=== PATIENT | male | born 1935 | race Caucasian/White ===

== ENCOUNTER → 2018-08-01 | Outpatient (CLI) | payer MEDICARE | END | disposition home or self-care (01) | LOC: PCVCCLINIC 13:20 | PROVIDERS: ATTEND Internal Medicine | DX: I25.10 Atherosclerotic heart disease of native coronary artery without angina pectoris (principal); I10 Essential (primary) hypertension; E78.5 Hyperlipidemia, unspecified; E11.9 Type 2 diabetes mellitus without complications; I95.1 Orthostatic hypotension; R01.1 Cardiac murmur, unspecified; K21.9 Gastro-esophageal reflux disease without esophagitis; Z79.82 Long term (current) use of aspirin; Z88.8 Allergy status to other drugs, medicaments and biological substances | CPT/HCPCS: 36415; 80061; 93005; G0463 ==

== ENCOUNTER → 2018-09-08 | Outpatient (CLI) | payer MEDICARE ==
--- NOTE | 2018-09-08 14:26 | PCVCIMAG ---
EXAM: BILATERAL CAROTID DUPLEX INDICATION: Carotid Occlusive Disease. FINDINGS: Doppler Measurements (centimeters per second): RIGHT: Peak CCA-54, Peak ECA-316, Diastolic ICA-117, Peak ICA-370, ICA/CCA Ratio-6.8. LEFT: Peak CCA-100, Peak ECA-247, Diastolic ICA-41, Peak ICA-176, ICA/CCA Ratio-1.8. RIGHT CAROTID: Previous stent upper common carotid artery and extending into the internal carotid artery appears to have high-grade 90% restenosis at its distal margin. The common carotid artery shows no significant stenosis. The external carotid artery shows 80% stenosis. LEFT CAROTID: The carotid bulb has moderate plaque. The proximal internal carotid artery shows 60% stenosis. The common carotid artery shows no significant stenosis. The external carotid artery shows 70% stenosis. Antegrade flow in both vertebral arteries. IMPRESSION: 90% restenosis proximal right internal carotid artery at the distal margin of a prior stent. 60% stenosis stenosis of the left internal carotid artery with moderate plaque. Further evaluation with conventional angiography will be arranged with the patient. LOC:OFFICE
--- NOTE | 2018-09-11 11:28 | PCVCIMAG ---
APPROVED REPORT Study performed: 09/08/2018 12:48:35 EXAM: Comprehensive 2D, Doppler, and color-flow Echocardiogram Patient Location: Echo lab Status: routine BSA: 1.90 HR: 55 bpmBP: 144/60 mmHg Rhythm: Bradycardia Other Information Study Quality: Adequate Risk Factors: Cardiac Risk Factors: HTN Indications Diabetes Murmur CAD 2D Dimensions IVSd: 11.30 (7-11mm)LVOT Diam: 21.16 (18-24mm) LVDd: 44.19 mm PWd: 10.68 (7-11mm) LVDs: 29.82 (25-40mm) Left Atrium: 32.75 (27-40mm) Aortic Root: 28.05 mm LV Single Plane 4CH: 60.51 % LV Single Plane 2CH: 66.69 % Biplane EF: 63.2 % Volumes Left Atrial Volume (Systole) Single Plane 4CH: 44.79 mLSingle Plane 2CH: 70.95 mL LA ESV Index: 31.00 mL/m2 Aortic Valve AoV Peak Franco.: 3.22 m/s AO Peak Gr.: 41.49 mmHgLVOT Max P.31 mmHg AO Mean Gr.: 22.91 mmHgLVOT Mean P.57 mmHg AO V2 Mean: 2.29 m/sLVOT Max V: 1.35 m/s AO V2 VTI: 75.29 cmLVOT Mean V: 0.89 m/s MUNIR (VTI): 1.43 [id number] V1 VTI: 30.71 cm MUNIR Vmax: 1.48 cm2 SV (LVOT): 107.94 mL Mitral Valve E/A Ratio: 0.8 MV Decel. Time: 295.25 ms MV E Max Franco.: 0.95 m/s MV A Franco.: 1.15 m/s IVRT: 93.43 ms Pulmonary Valve PV Peak Franco.: 1.26 m/sPV Peak Gr.: 6.36 mmHg Pulmonary Vein P Vein S: 0.33 m/sP Vein A: 0.29 m/s P Vein D: 0.49 m/sP Vein A Dur.: 141.9 msec P Vein S/D Ratio: 0.67 Tricuspid Valve TR Peak Franco.: 2.37 m/s TR Peak Gr.: 22.53 mmHg Left Ventricle The left ventricle is normal size. There is normal LV segmental wall motion. There is normal left ventricular wall thickness. Left ventricular systolic function is normal. The left ventricular ejection fraction is within the normal range. LVEF is 60-65%. The left ventricular diastolic function is normal. Right Ventricle The right ventricle is normal size. The right ventricular systolic function is normal. Atria The left atrium size is normal. The right atrium size is normal. Aortic Valve The aortic valve is moderately sclerotic. No aortic regurgitation is present. There is mild to moderate valvular aortic stenosis. Calculated aortic valve area is 1.5 cm2 with maximum pressure gradient of 41 mmHg and mean pressure gradient of 23 mmHg. Mitral Valve The mitral valve is normal in structure. Mild mitral regurgitation. No evidence of mitral valve stenosis. Tricuspid Valve The tricuspid valve is normal in structure. Mild tricuspid regurgitation with PAP of 30 mmHg. Pulmonic Valve The pulmonary valve is normal in structure. Trace pulmonic regurgitation. Great Vessels The aortic root is normal in size. IVC is normal in size and collapses >50% with inspiration. Pericardium There is no pericardial effusion. There is no pleural effusion. <Conclusion> The left ventricle is normal size. LVEF is 60-65%. The aortic valve is moderately sclerotic. No aortic regurgitation is present. There is mild to moderate valvular aortic stenosis. Calculated aortic valve area is 1.5 cm2 with maximum pressure gradient of 41 mmHg and mean pressure gradient of 23 mmHg. The mitral valve is normal in structure. Mild mitral regurgitation. The tricuspid valve is normal in structure. Mild tricuspid regurgitation with PAP of 30 mmHg. The pulmonary valve is normal in structure. Trace pulmonic regurgitation. There is no pericardial effusion.
== END | disposition home or self-care (01) ==
LOC: PCVCIMAG 12:43
PROVIDERS: ATTEND Internal Medicine
DX: I65.23 Occlusion and stenosis of bilateral carotid arteries (principal); I08.1 Rheumatic disorders of both mitral and tricuspid valves; E11.9 Type 2 diabetes mellitus without complications; R01.1 Cardiac murmur, unspecified; I25.10 Atherosclerotic heart disease of native coronary artery without angina pectoris; Z87.891 Personal history of nicotine dependence
CPT/HCPCS: 93306; 93880

== ENCOUNTER → 2018-09-14 | Outpatient (CLI) | payer MEDICARE | END | disposition home or self-care (01) | LOC: PCVCCLINIC 10:00 | PROVIDERS: ATTEND Nuclear Medicine Nuclear Cardiology | DX: I77.9 Disorder of arteries and arterioles, unspecified (principal); I25.10 Atherosclerotic heart disease of native coronary artery without angina pectoris; I10 Essential (primary) hypertension; E11.9 Type 2 diabetes mellitus without complications; E78.00 Pure hypercholesterolemia, unspecified; K21.9 Gastro-esophageal reflux disease without esophagitis; Z87.891 Personal history of nicotine dependence; Z79.82 Long term (current) use of aspirin | CPT/HCPCS: G0463 ==

== ENCOUNTER → 2019-03-06 | Outpatient (CLI) | payer MEDICARE | END | disposition home or self-care (01) | LOC: PCVCCLINIC 11:00 | PROVIDERS: ATTEND Internal Medicine | DX: I25.10 Atherosclerotic heart disease of native coronary artery without angina pectoris (principal); I10 Essential (primary) hypertension; I35.0 Nonrheumatic aortic (valve) stenosis; E78.5 Hyperlipidemia, unspecified; I65.29 Occlusion and stenosis of unspecified carotid artery; K21.9 Gastro-esophageal reflux disease without esophagitis; M10.9 Gout, unspecified; Z82.49 Family history of ischemic heart disease and other diseases of the circulatory system; Z91.041 Radiographic dye allergy status; Z79.82 Long term (current) use of aspirin; Z79.899 Other long term (current) drug therapy; Z83.3 Family history of diabetes mellitus; Z87.891 Personal history of nicotine dependence | CPT/HCPCS: 36415; 80061; 93005; G0463 ==

== ENCOUNTER → 2019-03-15 | Outpatient (CLI) | payer MEDICARE ==
--- NOTE | 2019-03-15 10:08 | PCVCIMAG ---
EXAM: BILATERAL CAROTID DUPLEX INDICATION: Carotid Occlusive Disease. Previous right carotid stent. FINDINGS: Doppler Measurements (centimeters per second): RIGHT: Peak CCA-40, Peak ECA-463, Diastolic ICA-123, Peak ICA-330, ICA/CCA Ratio-8.4. LEFT: Peak CCA-100, Peak ECA-247, Diastolic ICA-41, Peak ICA-176, ICA/CCA Ratio-1.8. RIGHT CAROTID: Previous stent upper common carotid artery and extending into the internal carotid artery has 90% restenosis at its distal margin. ICA/CCA ratio has increased from 6.8 on September 2018 study to 8.4 ratio today. Previous angiogram in September showed 80% restenosis. The common carotid artery shows no significant stenosis. The external carotid artery shows 90% stenosis. LEFT CAROTID: The carotid bulb has moderate plaque. The proximal internal carotid artery shows 50-60% stenosis. The common carotid artery shows no significant stenosis. The external carotid artery shows 80% stenosis. Antegrade flow in both vertebral arteries. IMPRESSION: 90% restenosis proximal right internal carotid artery at the distal margin of prior stent has increased in severity since prior study. 50-60% stenosis of the left internal carotid artery with moderate plaque. LOC:[id number]
== END | disposition home or self-care (01) ==
LOC: PCVCIMAG 09:12
PROVIDERS: ATTEND Nuclear Medicine Nuclear Cardiology
DX: I65.23 Occlusion and stenosis of bilateral carotid arteries (principal); I73.9 Peripheral vascular disease, unspecified; I25.10 Atherosclerotic heart disease of native coronary artery without angina pectoris; I10 Essential (primary) hypertension; I35.0 Nonrheumatic aortic (valve) stenosis; E78.00 Pure hypercholesterolemia, unspecified; E11.9 Type 2 diabetes mellitus without complications; K21.9 Gastro-esophageal reflux disease without esophagitis; M10.9 Gout, unspecified; E78.5 Hyperlipidemia, unspecified; Z87.891 Personal history of nicotine dependence
CPT/HCPCS: 93880; G0463